=== PATIENT | female | born 1985 | race Caucasian/White ===

== ENCOUNTER → 2020-08-01 | Outpatient (CLI) | payer OTHER ==
[~2020-08-01] MED LIST: ALPRazolam 1MG TAB ONE
== END | disposition home or self-care (01) ==
LOC: RAD 12:16
PROVIDERS: ATTEND Nurse Practitioner Family
DX: G93.5 Compression of brain (principal); H81.10 Benign paroxysmal vertigo, unspecified ear; G43.009 Migraine without aura, not intractable, without status migrainosus
CPT/HCPCS: 70551

== ENCOUNTER 2020-11-04 11:42 | Outpatient (CLI) | payer OTHER ==
[2020-11-04] MEDS ORDERED: MIDAZOLAM 1 MG/ML, 5ML ONE (12:44)
[2020-11-04] MEDS ORDERED: FENTANYL PF 100 MCG/2ML ONE (12:44)
== END 2020-11-04 23:59 | disposition home or self-care (01) ==
LOC: RAD 11:42 → EDSTATUS 12:45 → RAD 23:59
PROVIDERS: ATTEND Specialist
DX: G93.5 Compression of brain (principal); M54.9 Dorsalgia, unspecified; Z88.8 Allergy status to other drugs, medicaments and biological substances
CPT/HCPCS: 70551; 72141; 72146; 72148; 99156; 99157; J2250; J3010